=== PATIENT | male | born 1950 | race Caucasian/White ===

== ENCOUNTER → 2018-03-08 | Outpatient (CLI) | payer OTHER ==
[~2018-03-08] MED LIST: ALEVE220 MG PO; AMLODIPINE BES2.5 MG PO; ASPIR 8181 M1 PO; ASPIRIN81 M2 PO; CARDIZEM30 MG PO; CELECOXIB200 MG PO; COZAAR100 MG PO; CYANOCOBALAM1000 MCG PO; DOCUSATE SODIU100 MG PO; FLUOXETINE HCL20 MG PO; GABAPENTIN100 MG PO; GUAIFENESIN WI120 M1 PO; HYDROCHLOROTHIA25 MG PO; HYDROCODON-ACE1 EAC7 PO; IRON325 M1 PO; LIPITOR40 MG PO; LO-DOSE ASPIRIN81 M1 PO; LOSARTAN POTAS100 MG PO; LOVENOX40 MG/0.4 SC; METFORMIN HCL500 MG PO; NORVASC5 MG PO; OMEPRAZOLE20 MG PO; PANTOPRAZOLE SO40 MG PO; PRILOSEC20 MG PO; PROZAC20 MG PO; TRAZODONE HCL100 MG PO; TYLENOL EXTRA500 MG PO; VITAMIN D31000 UNIT PO; VITAMIN D50000 UNI4 PO; XARELTO20 MG PO
== END | disposition home or self-care (01) ==
LOC: RES 02-20 08:00
DX: R94.2 Abnormal results of pulmonary function studies (principal)
CPT/HCPCS: 94060; 94726; 94729